=== PATIENT | female | born 1990 | race Caucasian/White ===

== ENCOUNTER 2018-07-30 20:58 | Emergency (ER) | payer OTHER ==
[~2018-07-30] VITALS: Ht 157.5 cm; Wt 63.5 kg
[~2018-07-30 20:58] MED LIST: BACTRIM DS TAB1 EACH PO
[2018-07-30] MEDS ORDERED: IBUPROFEN 800800 M1 ×2 (21:14)
[2018-07-30] MEDS ORDERED: FLEXERIL (21:14)
[2018-07-30] MEDS ORDERED: YAZ 28 TABLET1 EACH (21:14)
[2018-07-30 22:51] LABS: INFLUENZA A ANTIGEN None Detected (None Detect)
[2018-07-30] MEDS ORDERED: ZOFRAN ODT4 MG PO (23:02)
[2018-07-30] MEDS ORDERED: TUSSIONEX PENN115 ML PO (23:02)
[2018-07-30] MEDS ORDERED: OSELB75 PO (23:02)
[2018-07-30 23:33] VITALS: BP 149/95
== END 2018-07-30 23:33 | disposition home or self-care (01) ==
LOC: M.ERS 20:58
PROVIDERS: Emergency Medicine
DX: J11.1 Influenza due to unidentified influenza virus with other respiratory manifestations (principal); F17.210 Nicotine dependence, cigarettes, uncomplicated; Z91.041 Radiographic dye allergy status; Z88.8 Allergy status to other drugs, medicaments and biological substances